=== PATIENT | male | born 1975 | race Caucasian/White ===

== ENCOUNTER 2025-08-21 19:05 | Emergency (ER) | payer OTHER ==
[~2025-08-21] VITALS: Ht 188 cm; Wt 100.0 kg
[2025-08-21 20:00] LABS: PLATELET COUNT (AUTO) 366 K/uL (150-450); RED BLOOD CELL COUNT(AUTO) 5.63 MIL/uL (4.50-5.90); RED CELL DISTRIBUTION WIDTH 15.2 % (11.5-14.5); WHITE BLOOD COUNT (AUTO) 11.1 K/uL (4.5-11.0)
[2025-08-21 20:09] LABS: CALCIUM, TOTAL 9.4 mg/dL (8.8-10.5); CREATININE 1.06 mg/dL (0.60-1.30); GLOMERULAR FILTR. RATE CALC > 60 mL/min (>60); GLUCOSE,RANDOM 87 mg/dL (70-110); SODIUM SERUM 140 mmol/L (136-145); UREA NITROGEN, BLOOD 26 mg/dL (7-18)
[2025-08-21 20:10] LABS: APPEARANCE,URINE CLEAR (CLEAR); GLUCOSE, URINE (UA) TRACE mg/dL (NEGATIVE); LEUKOCYTE ESTERASE ,URINE SMALL (NEGATIVE); NITRATE,URINE NEGATIVE (NEGATIVE); OCCULT BLOOD,URINE NEGATIVE (NEGATIVE); PH,URINE DRUG SCREEN 5.5 (5.0-8.0); SPECIFIC GRAVITIY, URINE 1.011 (1.003-1.030)
[2025-08-21 20:15] VITALS: TEMP 97.9
[2025-08-21 20:16] LABS: ALCOHOL, URINE DRUG SCREEN POSITIVE (NEGATIVE); AMPHET/METH SCREEN,URINE NEGATIVE (NEGATIVE); BARBITURATE SCREEN, URINE NEGATIVE (NEGATIVE); CANNABINOID SCREEN,URINE NEGATIVE (NEGATIVE); COCAINE SCREEN,URINE NEGATIVE (NEGATIVE); METHADONE SCREEN, URINE NEGATIVE (NEGATIVE)
[2025-08-21 20:19] LABS: SQUAMOUS EPITHELIAL CELL,UR Rare /LPF (None Seen)
[2025-08-21 22:47] LABS: COVID AG,FIA SOURCE NASAL SWAB
[2025-08-21 23:07] LABS: SARS-COV2 (COVID) ANTIGEN,FIA Negative (Negative)
[2025-08-22 00:59] VITALS: BP 127/89; PULSE 74; RESP 16; O2SAT 99
== END 2025-08-22 02:36 | disposition admitted as inpatient to this hospital (09) ==
LOC: EMS 19:09
DX: F32.9 Major depressive disorder, single episode, unspecified (principal); R45.851 Suicidal ideations; Z65.3 Problems related to other legal circumstances; Z20.822 Contact with and (suspected) exposure to COVID-19
CPT/HCPCS: 99285; 87426; 80048; 81001; 85025; 36415; 80307; G0480